=== PATIENT | male | born 1945 | race Caucasian/White ===

== ENCOUNTER → 2018-10-30 | Outpatient (CLI) | payer OTHER, MEDICARE ==
[~2018-10-30] MED LIST: ADULT LOW DOSE81 MG; ALPHAGAN P10 ML; ATENOLOL 25 MG25 M1 PO; ATENOLOL 50MG T50 M1; BREO ELLIPTA 11 EACH IH; BYSTOLIC 5 MG5 M1; FINASTERIDE5 MG; FUROSEMIDE 40 M40 M1; K-DUR 20 MEQ T20 MEQ; LEVAQUIN 500 M500 MG PO; NORCO 5-325 TA1 EACH PO; OMEPRAZOLE20 M2; PRADAXA75 MG PO; PROAIR HFA8.5 GM; QUINAGLUTE DUR324 M1; SYMBICORT160 MCG/4.; TAMSULOSIN HCL0.4 MG; XALATAN2.5 ML; XALATAN2.5 ML OPHTHALMIC
[2018-10-30 16:03] LABS: HEMATOCRIT 40.1 % (42.0-52.0); HEMOGLOBIN 13.8 gm/dL (14.0-18.0); MCH 30.4 pg (26.0-34.0); MCHC 34.4 g/dL (28.0-37.0); MCV 88.4 fL (80.0-100.0); MPV 8.3 fl. (7.2-11.1); RBC 4.54 mil/uL (4.50-6.00); RDW-CV 14.8 % (10.5-14.5); WBC 4.7 thou/uL (4.0-11.0)
== END ==
LOC: M.LAB 15:46
PROVIDERS: Internal Medicine Cardiovascular Disease
DX: I48.92 Unspecified atrial flutter (principal)

== ENCOUNTER 2018-11-23 16:53 | Inpatient (IN) | payer MEDICARE, OTHER ==
[~2018-11-23] VITALS: Ht 177.8 cm; Wt 68.7 kg
[2018-11-23] VITALS (26 sets, daily range): BP systolic 54–165; BP diastolic 36–124
--- NOTE | ~2018-11-23 | CON ---
[facility] [address] [place] [address] CONSULTATION Name: ELICIA SANDRA Room: [address] IN .R.#: [id number] Admission: 11/23/18 Attend Phys: Peter Sharma MD, F Discharge: Date of : 43 Report #: [id number] THIS REPORT FOR: //name// CC: Robi Sharma HISTORY OF PRESENT ILLNESS: This is a pleasant 73-year-old gentleman with past medical history significant for coronary artery disease, congenital heart disease and prostate cancer, who was brought in by his after he had a cardiac arrest. The patient was admitted on of this month. At presentation, the patient was in cardiac arrest. He underwent cardiac catheterization and stenting was performed. The patient since then had been on hypothermia protocol and has currently remained sedated and intubated. The GI service has been consulted for evaluation of hematemesis. The patient further had prior history of epistaxis. There is no known past medical history of peptic ulcer disease. Since the patient is currently sedated and intubated, most of the history has been obtained from chart and the patient's spouse. PAST MEDICAL HISTORY: As mentioned above. The patient has a past medical history significant for coronary artery disease, prostate cancer, hernia repair, cholecystectomy, hypertension, diabetes, hyperlipidemia. SOCIAL HISTORY: The patient is . He lives with . There is no history of smoking, alcohol or recreational drug use. FAMILY HISTORY: There is no family history of colorectal cancer, gastric or esophageal cancer. REVIEW OF SYSTEMS: Unable to obtain because of the patient's mental status. PHYSICAL EXAMINATION: VITAL SIGNS: Temperature 36.8, pulse rate 79, blood pressure 97/51, pulse ox 100% on vent, respirations 24 per minute. GENERAL: The patient is sedated, intubated, not responding to voice or pain. HEENT: Blood is noted along the nasal layers. Oral mucosa appears moist. CARDIOVASCULAR: Irregularly irregular rhythm. LUNGS: Clear to auscultation bilaterally. ABDOMEN: Soft. There is no distention, guarding or rigidity. EXTREMITIES: Bilateral pitting edema noted. LABORATORY DATA: Hemoglobin 11.8, hematocrit 34.2, platelet count 131, WBC count 9.8. Sodium 138, potassium 4.1, chloride 104, bicarbonate 27, BUN 28, creatinine 1.3. ASSESSMENT AND PLAN: Pleasant 73-year-old gentleman with a history as outlined above, who is presenting with hematemesis. [place] [address] CONSULTATION Name: ELICIA SANDRA Room: [address]#: [id number] Admission: 11/23/18 Attend Phys: Peter Sharma MD, F Discharge: Date of : 43 Report #: [id number] esophagogastroduodenoscopy and make further recommendations based on the results of esophagogastroduodenoscopy. By: 1736 MD eloisa Hong
[2018-11-23 17:17] LABS: BE -6.2 mmol/L (-2 to +3); PCO2 32.7 mmHg (35.0-45.0)
[2018-11-23 17:22] LABS: PO2 > 488.8 mmHg (75.0-100.0)
--- NOTE | 2018-11-23 17:33 | NUR ---
ROSC OBTAINED. EKG DONE. STEMI ACTIVATED. SEE STEMI PAPERWORK.
--- NOTE | 2018-11-23 17:35 | NUR ---
PT TO THE [facility] AT 3810.
[2018-11-23] MEDS ORDERED: DULERA 200 MCG/13 GM INH (17:53)
[2018-11-23] MEDS ORDERED: XARELTO15 MG PO (17:54)
[2018-11-23] MEDS ORDERED: SOTALOL 120 MG120 M1 PO (17:54)
[2018-11-23] MEDS ORDERED: PRESERVISION A1 EAC2 PO (17:54)
[2018-11-23 20:10] LABS: ABSOLUTE LYMPHOCYTES 2.9 thou/uL (0.8-5.3); ABSOLUTE MONOCYTES 0.4 thou/uL (0.0-1.2); BASOPHILS 0.3 %; CALCIUM 8.9 mg/dL (8.5-10.1); CREATININE 1.2 mg/dL (0.6-1.3); EOSINOPHILS 0.1 %; HEMATOCRIT 44.4 % (42.0-52.0); LYMPHOCYTES 54.5 %; MCH 30.7 pg (26.0-34.0); MCHC 33.8 g/dL (28.0-37.0); MCV 90.7 fL (80.0-100.0); MONOCYTES 7.4 %; MPV 9.4 fl. (7.2-11.1); NUCLEATED RBCS 1 /100WBC; PLATELET COUNT* 179 thou/uL (150-400); POLYS 37.7 %; POTASSIUM 3.8 mmol/L (3.5-5.1); RBC 4.89 mil/uL (4.50-6.00); WBC 5.4 thou/uL (4.0-11.0)
[2018-11-23 20:20] LABS: ALBUMIN 3.3 g/dL (3.4-5.0); TOTAL BILIRUBIN 0.6 mg/dL (<0.1-1.0); TOTAL PROTEIN 6.5 g/dL (6.4-8.2); TROPONIN-I LEVEL 0.23 ng/mL (<0.06)
[2018-11-23 20:37] LABS: APTT 40.3 Seconds (25.0-31.3); INR 1.1; PROTIME 11.4 Seconds (9.20-11.50)
[2018-11-23 20:54] LABS: CALCIUM 8.2 mg/dL (8.5-10.1); CREATININE 1.1 mg/dL (0.6-1.3); POTASSIUM 4.1 mmol/L (3.5-5.1)
[2018-11-23 21:04] LABS: BE -2.2 mmol/L (-2 to +3); PCO2 37.2 mmHg (35.0-45.0); pH 7.393 (7.340-7.450)
[2018-11-23 21:04] LABS: ALBUMIN 3.1 g/dL (3.4-5.0); TOTAL BILIRUBIN 0.8 mg/dL (<0.1-1.0)
[2018-11-23 21:10] LABS: PO2 230.4 mmHg (75.0-100.0)
[2018-11-24] VITALS (117 sets, daily range): BP systolic 31–131; BP diastolic -26–100
[2018-11-24 03:04] LABS: APTT 44.7 Seconds (25.0-31.3); INR 1.1; PROTIME 11.4 Seconds (9.20-11.50)
[2018-11-24 03:23] LABS: ABSOLUTE MONOCYTES 1.1 thou/uL (0.0-1.2); ABSOLUTE NEUTROPHILS 11.1 thou/uL (1.6-8.1); BASOPHILS 0.1 %; HEMATOCRIT 41.6 % (42.0-52.0); HEMOGLOBIN 13.8 gm/dL (14.0-18.0); LYMPHOCYTES 7.6 %; MCHC 33.3 g/dL (28.0-37.0); MONOCYTES 8.1 %; MPV 9.1 fl. (7.2-11.1); NUCLEATED RBCS 0 /100WBC; PLATELET COUNT* 197 thou/uL (150-400); POLYS 84.2 %; RBC 4.62 mil/uL (4.50-6.00); RDW-CV 14.2 % (10.5-14.5); WBC 13.2 thou/uL (4.0-11.0)
--- NOTE | 2018-11-24 03:30 | NUR ---
PT RECEIVED FROM [facility]EN PRESS TENDER S/P CATH FOR STEMI AND POST CARDIAC ARREST. PT ON HOSPITAL BED. ADMITTED TO 1CU 2 AT 1920. ETT 7.5 AND 25 @ LIP INTACT AND CONNECTED TO VENT. SEE CHARTING FOR SETTINGS. MONITORS APPLIED WITH ALARMS SET. PT IS NOTED TO BE HAVING DECEREBRATE POSTURING OF LEGS, FEET, ARMS AND HANDS. PT DOES NOT FOLLOW COMMANDS. PERRL AT THIS TIME. TEMP PROBE ANDERSON INSERTED ORDERED WITHOUT DIFFICULTY WITH CLEAR YELLWO URINE RETURN AND CONNECTED TO BEDSIDE BAG, UA SENT ORDERED. 2029 COOLING BEGAN AFTER PLACEMENT OF PADS. 2034 LABS SENT ORDERED. NGT PLACED ORDERED AND PLACEMENT VERIFIED PER XRAY. CONNECTED TO LIS WITH DARK RED DC 2339 DR BELL NOTIFIED OF BRIGHT RED DC FROM ETT TUBEAND DARK RED DC FROM NGT. NEW ORDERS RECEIVED. AGGRESTAT OFF AT [address] tim GONZALEZ HERE FOR CENTRAL LINE PLACEMENT. PLACEMENT VERIFIED BY XRAY AND CLEARED FOR USE. ALL LINES HAD DRESSING CHANGES AFTER AGGRESTAT WAS DCD DUE TO BLEEDING. NO ACTIVE BLEEDING NOTED AT THIS TIME AFTER ACHIEVIGN SEDATION LEVEL, PTS BP DECREASED AND PRESSORS STARTED ORDERED. 2149 DR BELL NOTIFIED OF 13 BEAT RUN OF V TACH. NO NEWORDERS RECEIVED AT THIS TIME. VSS HAVE IMPROVED EVENING PROGRESSED.
[2018-11-24 03:38] LABS: CALCIUM 8.6 mg/dL (8.5-10.1); CREATININE 0.9 mg/dL (0.6-1.3); MAGNESIUM 1.7 mg/dL (1.8-2.4); PHOSPHORUS* 4.1 mg/dL (2.5-4.9)
[2018-11-24 03:44] LABS: CHOLESTEROL 235 mg/dL (<200); HDL CHOLESTEROL 60 mg/dL (>40); LDL CHOLESTEROL 149 mg/dL (<100); TC:HDL 3.9 Ratio (Not establshd); TRIGLYCERIDE 130 mg/dL (<150); VLDL 26 mg/dL (<40)
[2018-11-24 03:45] LABS: SERUM ASSESSMENT Clear
[2018-11-24 07:50] LABS: BE -5.1 mmol/L (-2 to +3); PO2 101.7 mmHg (75.0-100.0)
[2018-11-24 07:54] LABS: pH 7.242 (7.340-7.450)
[2018-11-24 08:20] LABS: PCO2 54.5 mmHg (35.0-45.0)
[2018-11-24 08:50] LABS: ABSOLUTE MONOCYTES 1.9 thou/uL (0.0-1.2); BASOPHILS 0.1 %; EOSINOPHILS 0.2 %; HEMATOCRIT 40.3 % (42.0-52.0); HEMOGLOBIN 13.3 gm/dL (14.0-18.0); LYMPHOCYTES 6.9 %; MCH 29.6 pg (26.0-34.0); MCV 89.6 fL (80.0-100.0); MONOCYTES 12.4 %; MPV 8.7 fl. (7.2-11.1); NUCLEATED RBCS 0 /100WBC; PLATELET COUNT* 195 thou/uL (150-400); POLYS 80.4 %; RDW-CV 13.8 % (10.5-14.5)
[2018-11-24 09:07] LABS: APTT 41.9 Seconds (25.0-31.3); PROTIME 10.7 Seconds (9.20-11.50)
--- NOTE | 2018-11-24 09:18 | NUR ---
REWARMING PROCESS BEGAN AT [address] BELL.
[2018-11-24 09:35] LABS: CALCIUM 8.4 mg/dL (8.5-10.1); CK-MB MASS 486.6 ng/mL (<0.5-3.6); CREATININE 1.2 mg/dL (0.6-1.3); MAGNESIUM 3.1 mg/dL (1.8-2.4); PHOSPHORUS* 4.8 mg/dL (2.5-4.9); POTASSIUM 4.3 mmol/L (3.5-5.1)
[2018-11-24 09:44] LABS: BE -4.1 mmol/L (-2 to +3); PO2 87.7 mmHg (75.0-100.0)
[2018-11-24 09:46] LABS: pH 7.276 (7.340-7.450)
--- NOTE | 2018-11-24 11:36 | CARD ---
[facility] [address] [place] [address] CARDIAC CATH REPORT Name: ELICIA SANDRA Thania Room: [facility] IN .R.#: [id number] Admission: 11/23/18 Attend Phys: Peter Sharma MD, F Discharge: Date of : 43 Report #: [id number] THIS REPORT FOR: //name// APPROVED REPORT Study performed: 11/23/2018 17:08:48 Patient Details Patient Status: ED Room #: The patient is a 73 year-old male Event Personnel Camryn Loving RN RN, Gladis Snow, Gaudencio Bustos (Helen) Edith Hicks David Clasp Machine Operator Procedures Performed Art Access - R femoral artery* Danilo Access - R femoral vein Left Heart Cath w/or w/o Coronaries 3706825 C BMS Revasc Single DIAG [id number] BMREVSVGSG BMS Revasc Single OM [id number] BMREVSVGSG PTCA Single Vessel LAD [id number] PCISINGLE , PTCA with Stenting Indication Abnormal ECG, Syncope, Chest pain Risk Factors Hypercholesterolemia Previous Procedures/Diagnoses Previous Valve Surgery Admission/Lab Medications/Medications given during procedure Glycoprotein IllbIlla Inhibitors, Heparin Unfract. Procedure Narrative The patient was brought emergently to the Cardiac Catheterization Laboratory and was prepped and draped in a sterile manner. The right femoral was infiltrated with 2% Lidocaine subcutaneous anesthesia. A Rowe 6 FR sheath was inserted into the right femoral artery. Coronary angiography was performed using coronary diagnostic catheters. The right coronary system was accessed and visualized with a Diagnostic catheter. The left coronary system was accessed and visualized with a Diagnostic catheter. The left ventricle was accessed and visualized [place] [address] CARDIAC CATH REPORT Name: ELICIA SANDRA Room: [address]#: [id number] Admission: 11/23/18 Attend Phys: Peter Sharma MD, F Discharge: Date of : 43 Report #: [id number] ventricular/Aortic Valve gradient assessed via catheter pullback. Left ventriculogram was performed in LANDAVERDE projection. The patient tolerated the procedure well and there were no complications associated with the procedure. There was no hematoma. Lines were sutured in. Venous sheath was placed in the right femoral vein for central venous access. The patient had been intubated and was unresponsive and on a ventilator at the time of the procedure. The patient had been cardioverted from ventricular fibrillation in the ED, and the ECG showed an anterior STEMI. Intraoperative Conscious Sedation Sedation start time: 1747 Case end Time: 1840 Versed 8 mg Fluoro Time: 12.3 minutes Contrast Type and Amount: Visipaque 380 ml Coronary Angiography The patient's coronary anatomy is co- dominant. Diagnostic Cath Left Main 0% stenosis LAD appeared occluded after the second diagonal branch and filled distally by bridging collaterals Diagonal 2 ostial 99% stenosis OM2 appearred acutely occluded Right Coronary 30% stenosis noted proximally Left Ventriculography The left ventricular ejection fraction is estimated to be 20-25%. Left ventricular wall motion abnormalities are present. There is 1+ mitral insufficiency. akinesis of the mid and distal anteroapical wall. Hemodynamics The aortic pressure is 139/85 mmHg with a mean of 96 mmHg. The left ventricular pressure is 120/22 mmHg with a mean of mmHg. The left ventricular end diastolic pressure is 38 mmHg. There was no gradient across the aortic valve upon pullback. Pullback from the left ventricle to the aorta revealed no gradient across the aortic valve. PCI Technique Lesion Anticoagulation was achieved with Heparin. iv bolus and infusion of aggrastat given Percutaneous coronary [place] [address] CARDIAC CATH REPORT Name: ELICIA SANDRA Room: [address]#: [id number] Admission: 11/23/18 Attend Phys: Peter Sharma MD, F Discharge: Date of : 43 Report #: [id number] the LAD . The lesion stenosis prior to intervention was 100% with YAHAIRA 0 flow. A 6F XB LAD 3.5 Guide Catheter was used to engage the lm ostium. A IG: BMW 190cm Interventional Guidewire was used to cross the lesion. BALLOON DILATION Unable to advance bmw wire into lad because of acute takeoff of lad from first septal manufacturing lab technician. Also, there was a concern that the occlusion represented a chronic occlusion. Attempted PTCA by inflating 2.5 x 8 mm balloon in the septal manufacturing lab technician to guide a prowater flex wire into the lad, but these efforts were also unsuccessful. It was therefore decided to stent the ostium of the large second diagonal branch which was noted to have a 99% stenosis. Final angiography reveals 100 % stenosis with YAHAIRA 0 flow. STENT DEPLOYMENT A bare metal stent Mini Vision RX 2.5 X 8 was inserted and inflated up to 8atm for 11seconds. Additional Inflation: 10atm for 11seconds. PCI Technique Lesion 2 Percutaneous Coronary Intervention was performed on the second diagonal branch segment. Percutaneous coronary intervention was performed on the second diagonal branch segment. The lesion stenosis prior to intervention was 99% with YAHAIRA 3 flow. A 6F XB LAD 3.5 Guide Catheter was used to engage the lm ostium. A IG: BMW 190cm Interventional Guidewire was used to cross the lesion. Balloon Dilation A Balloon catheter 2.5 x 8 mm was inserted and inflated up to 8atm for 10seconds. Repeat angiography revealed the following post-dilatation results: 50% stenosis. Stent Deployment A bare metal stent Trek RX 2.5 X 8 was inserted and inflated up to 8atm for 11seconds. Repeat angiography revealed the following post-stent deployment results: 0% stenosis. Additional Inflation: 11atm for 10seconds. Final angiography reveals 0 % stenosis with YAHAIRA 3 flow. PCI Technique Lesion 3 Percutaneous Coronary Intervention was performed on the second obtuse marginal branch segment. Percutaneous coronary intervention was [address] [place] [address] CARDIAC CATH REPORT Name: ELICIA SANDRA Room: [address] IN ..#: [id number] Admission: 11/23/18 Attend Phys: Peter Sharma MD, F Discharge: Date of : 43 Report #: [id number] performed on the second obtuse marginal branch segment. The lesion stenosis prior to intervention was 100% with YAHAIRA 0 flow. A xblad3.5 Guide Catheter was used to engage the lm ostium. A bmw Interventional Guidewire was used to cross the lesion. Balloon Dilation A Balloon catheter Trek RX 2.5 X 12 was inserted and inflated up to 8atm for 10seconds. Repeat angiography revealed the following post-dilatation results: 50% stenosis. Initial arteriogram revealed the 2nd OM occluded. However, after IV heparin and aggrastat given during stenting of the diagonal artery, the OM was noted to have reperfused with a 90% stenosis Stent Deployment A bare metal stent Mini Vision RX 2.5 X 18 was inserted and inflated up to 8atm for 9seconds. Repeat angiography revealed the following post-stent deployment results: 0% stenosis. Final angiography reveals 0 % stenosis with YAHAIRA 3 flow. Conclusion 1. chronic occlusion of the mid lad that filled by collaterals 2. acute occlusion of the second marginal branch of the circumflex 3. high grade stenosis of the ostium of the second diagonal branch 4. successful placement of drug eluting stents in the diagonal branch and second marginal branch 5. unsuccessful PTCA attempt of the lad 6. LVEF 20-25% Recommendations Aggressive Medical Therapy <ELECTRONICALLY SIGNED> By: Peter Sharma MD, [facility] 11/24/18 1136 1136 1136Peter Sharma MD, FAC /INF
[2018-11-24 11:44] LABS: BE -4.7 mmol/L (-2 to +3); PCO2 37.7 mmHg (35.0-45.0); pH 7.349 (7.340-7.450)
--- NOTE | 2018-11-24 15:00 | NUR ---
PT ADMITTED 11/23, REMAINS ON VENT AND CODE ICE. SPOKE WITH IN WAITING ROOM. SHE HAS NO QUESTIONS ABOUT PLAN OF CARE, STATES THE DOCTORS AND NURSES ARE DOING A GOOD JOB OF KEEPING HER UPDATED. BRIEFLY EXPLAINED ROLE OF CASE MGT, WILL CONTINUE TO FOLLOW.
--- NOTE | 2018-11-24 15:33 | EKG ---
[place] [address] ELECTROCARDIOGRAM REPORT Name: ELICIA SANDRA Room: [facility] IN .R.#: [id number] Admission: 11/23/18 Attend Phys: Peter Sharma MD, F Discharge: Date of : 43 Report #: [id number] THIS REPORT FOR: //name// [facility] ED Test Date: 2018-11-23 Test Time: 16:59:35 Pat Name: ELICIA SANDRA Department: Room: Gender: Signal Technician: [facility] : 1945 Requested By: Order Number: [id number] Eamon MD: Gordy Mock Measurements Intervals [place] Rate: 90 P: 50 RI: 184 QRS: -105 QRSD: 158 T: 36 QT: 360 QTc: 441 Interpretive Statements Sinus rhythm Probable left atrial enlargement Right bundle branch block Left anterior fascicular block Anterolateral infarct, acute (LAD) Baseline wander in lead(s) V1,V4,V5 Compared to ECG 12/29/2014 19:52:11 Myocardial infarct finding now present Sinus bradycardia no longer present Electronically Signed On 11-24-2018 15:33:04 CDT by Gordy Mock [email or web address] <ELECTRONICALLY SIGNED> By: Gordy Mock MD, FACC 11/24/18 1533 1659 1659 Gordy Mock MD, FACC /EPI
--- NOTE | 2018-11-24 15:35 | EKG ---
[place] [address] ELECTROCARDIOGRAM REPORT Name: JOCYELICIA Thania Room: [address] ADM IN M.R.#: [id number] Admission: 11/23/18 Attend Phys: Peter Sharma MD, F Discharge: Date of : 43 Report #: [id number] THIS REPORT FOR: //name// [facility] Test Date: 2018-11-23 Test Time: 20:11:29 Pat Name: ELICIA SANDRA Department: Room: [address] Gender: M Life Sciences Director: Brittney BYRD RN : 1945 Requested By: Peter Sharma Order Number: [id number] Eamon MD: Gordy Mock Measurements Intervals [place] Rate: 118 P: 186 DC: 125 QRS: 231 QRSD: 145 T: 57 QT: 378 QTc: 530 Interpretive Statements Sinus or ectopic atrial tachycardia Consider dextrocardia Baseline wander in lead(s) V4 Compared to ECG 12/29/2014 19:52:11 Sinus bradycardia no longer present Right bundle-branch block no longer present Left anterior fascicular block no longer present Bifascicular block no longer present Electronically Signed On 11-24-2018 15:35:33 CDT by Gordy Mock [email or web address] <ELECTRONICALLY SIGNED> By: Gordy Mock MD, FACC 11/24/18 1535 10 10 Gordy Mock MD, FAC /EPI
--- NOTE | 2018-11-24 15:37 | EKG ---
[place] [address] ELECTROCARDIOGRAM REPORT Name: JOCYELICIA Thania Room: [address] ADM IN M.R.#: [id number] Admission: 11/23/18 Attend Phys: Peter Sharma MD, F Discharge: Date of : 43 Report #: [id number] THIS REPORT FOR: //name// [facility] Test Date: 2018-11-24 Test Time: 07:51:30 Pat Name: ELICIA SANDRA Department: Room: [address] Gender: M Coin Machine Collector Supervisor: : 1945 Requested By: Peter Sharma Order Number: [id number] Eamon MD: Gordy Mock Measurements Intervals [place] Rate: 78 P: -39 [place]: 142 QRS: -114 QRSD: 167 T: 89 QT: 512 QTc: 584 Interpretive Statements Sinus rhythm Multiple premature complexes, vent & supraven Right bundle branch block Compared to ECG 12/29/2014 19:52:11 Sinus bradycardia no longer present Left anterior fascicular block no longer present Bifascicular block no longer present Electronically Signed On 11-24-2018 15:37:25 CDT by Gordy Mock [email or web address] <ELECTRONICALLY SIGNED> By: Gordy Mock MD, FAC 11/24/18 1537 0751 0751 Gordy Mock MD, [facility] /EPI
--- NOTE | 2018-11-24 17:32 | NUR ---
PT CARE ASSUMED AFTER REPORT. ASSESSMENTS COMPLETE. PT WITH V FIB, SR, SB, PVC, PAC, CUPLETS ON MONITOR THIS SHIFT. PT REMAINS ON VENT AND IS SEDATED. NG TO LIS WITH BLOODY DRAINAGE. BLOOD DRAINS FROM MOUTH AT TIMES AND SUCTIONED PRN. PT REWARMING PER PROTOCOL AT THIS TIME. REWARMING BEGAN AT 0802. TITRATING LEVOPHED DOWN TOLERATED. ANDERSON TO DD. FAMILY AT BEDSIDE OFF AND ON THROUGH THE DAY. WOULS LIKE TO BE PRESENT WHEN SEDATION IS TITRATED DOWN IN CASE PT AWAKENS. ART LINE AND CVP FUNCTIONING WELL. NO S/S OF PAIN. PT BEGINNING TO PROGRESS TOWARDS GOALS.
[2018-11-24 20:29] LABS: ABSOLUTE LYMPHOCYTES 0.6 thou/uL (0.8-5.3); ABSOLUTE MONOCYTES 0.7 thou/uL (0.0-1.2); ABSOLUTE NEUTROPHILS 7.1 thou/uL (1.6-8.1); BASOPHILS 0.5 %; HEMATOCRIT 37.3 % (42.0-52.0); HEMOGLOBIN 12.7 gm/dL (14.0-18.0); LYMPHOCYTES 7.2 %; MCH 30.5 pg (26.0-34.0); MCHC 34.2 g/dL (28.0-37.0); MCV 89.1 fL (80.0-100.0); MONOCYTES 8.7 %; MPV 8.7 fl. (7.2-11.1); NUCLEATED RBCS 0 /100WBC; PLATELET COUNT* 130 thou/uL (150-400); POLYS 83.6 %; RBC 4.18 mil/uL (4.50-6.00); RDW-CV 14.5 % (10.5-14.5); WBC 8.5 thou/uL (4.0-11.0)
[2018-11-24 20:44] LABS: APTT 43.3 Seconds (25.0-31.3); PROTIME 10.5 Seconds (9.20-11.50)
[2018-11-24 20:48] LABS: CALCIUM 8.7 mg/dL (8.5-10.1); CREATININE 1.1 mg/dL (0.6-1.3); MAGNESIUM 2.7 mg/dL (1.8-2.4); PHOSPHORUS* 4.8 mg/dL (2.5-4.9); POTASSIUM 4.2 mmol/L (3.5-5.1)
[2018-11-25] VITALS (108 sets, daily range): BP systolic 75–142; BP diastolic 46–136
[2018-11-25 03:46] LABS: HEMATOCRIT 34.2 % (42.0-52.0); HEMOGLOBIN 11.8 gm/dL (14.0-18.0); MCH 30.6 pg (26.0-34.0); MCHC 34.5 g/dL (28.0-37.0); MCV 88.8 fL (80.0-100.0); MPV 9.3 fl. (7.2-11.1); RBC 3.86 mil/uL (4.50-6.00); RDW-CV 14.3 % (10.5-14.5); WBC 9.8 thou/uL (4.0-11.0)
[2018-11-25 04:20] LABS: ALBUMIN 2.5 g/dL (3.4-5.0); CALCIUM 8.5 mg/dL (8.5-10.1); CREATININE 1.3 mg/dL (0.6-1.3); POTASSIUM 4.1 mmol/L (3.5-5.1); TOTAL BILIRUBIN 1.4 mg/dL (<0.1-1.0); TOTAL PROTEIN 5.4 g/dL (6.4-8.2)
[2018-11-25 04:56] LABS: TROPONIN-I LEVEL 50.18 ng/mL (<0.06)
[2018-11-25 05:02] LABS: BE -2.4 mmol/L (-2 to +3); PCO2 39.4 mmHg (35.0-45.0); pH 7.375 (7.340-7.450)
--- NOTE | 2018-11-25 06:26 | NUR ---
REPORT RECIEVED FROM OFF GOIGN SHIFT AND CARE ASSUMMED. MONTIORS INTACT AND ALARMS SET. ETT 7.5 26 @LIP INTACT AND CONNECTED TO VENTILATOR. SEE CHARTING FOR SETTINGS. PT IS CURRENTLY BEING REWARMED. ANDERSON INTACT AND PATENT DRAINING SIMON URINE TO BEDSIDE BAG. JUST PRIOR TO ASSUMMING CARE PTS TEMP DECREASED TO 96.7 AND CONTINUE OT FALL. SEE CHARTING FOR DETAILS. CURRNTLY TEMP IS 98.4. NO ACUTE CHANGES DURING SHIFT WILL CONTINUE TO MONITOR
--- NOTE | 2018-11-25 10:57 | EKG ---
[place] [address] ELECTROCARDIOGRAM REPORT Name: ELICIA SANDRA Room: [address] ADM IN M.R.#: [id number] Admission: 11/23/18 Attend Phys: Peter Sharma MD, F Discharge: Date of : 43 Report #: [id number] THIS REPORT FOR: //name// [facility] Test Date: 2018-11-25 Test Time: 09:02:04 Pat Name: ELICIA ASNDRA Department: Room: [address] Gender: M Show Design Supervisor: : 1945 Requested By: Peter Sharma Order Number: [id number] Eamon MD: Peter Sharma Measurements Intervals [place] Rate: 77 P: 40 [place]: 147 QRS: -123 QRSD: 151 T: 104 QT: 423 QTc: 479 Interpretive Statements Sinus rhythm Right bundle branch block Inferior infarct, old Anterolateral infarct, age indeterminate Compared to ECG 11/24/2018 07:51:30 Myocardial infarct finding now present Electronically Signed On 11-25-2018 10:56:55 CDT by Peter Sharma [email or web address] <ELECTRONICALLY SIGNED> By: Peter Sharma MD, [facility] 11/25/18 1056 0902 0902 Peter Sharma MD, [facility] /EPI
--- NOTE | 2018-11-25 16:40 | H ---
[place] [address] HISTORY AND PHYSICAL Name: ELICIA SANDRA Room: [address] IN .R.#: [id number] Admission: 11/23/18 Attend Phys: Peter Sharma MD, F Discharge: Date of : 43 Report #: [id number] THIS REPORT FOR: //name// CC: Robi Topete MD DATE OF SERVICE: 11/23/2018 HISTORY OF PRESENT ILLNESS: The patient is a 73-year-old white male who I was asked to see in the Emergency Room today after he suffered a cardiac arrest. The history is obtained from the . The patient is currently intubated. According to the , he had pulmonary valvuloplasty when he was 5 years old for congenital heart disease. 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 At that time, they also repaired a hole in his heart. He has been followed by Dr. Rivera. He also had a history of atrial fibrillation and had an ablation performed in the past as well. He has acutely done well since that time, last saw Dr. Rivera several months ago. He stays active. He was diagnosed with prostate cancer about 3 months ago. Today, he went for radiation therapy. When he got home, he felt some pressure in his chest and had some belching. The placed him in the car and they started to drive here to [facility]. In the car, the patient became unresponsive and slumped over. The brought him to the Emergency Room. The Emergency Room physician went out to the car and the patient was unresponsive. He was intubated. On the monitor, he was noted to be in ventricular fibrillation. He was cardioverted. I was asked to see him on an emergent basis. The denies previous history of coronary artery disease, chest pain, shortness of breath, palpitations, syncope, or bleeding. PAST MEDICAL HISTORY: Significant for hernia repair, cholecystectomy. No history of hypertension, diabetes, hyperlipidemia. MEDICATIONS: Include Sotalol, and Xarelto. ALLERGIES: HE HAS AN ALLERGY TO BIAXIN. FAMILY HISTORY: Negative for heart disease. SOCIAL HISTORY: He is . He and his live in [place]. He is a retired medical coding auditor. No smoking or alcohol abuse. REVIEW OF SYSTEMS: He has no history of stroke. He has had COPD, uses inhaler. No history of peptic ulcer disease, liver disease, kidney disease, psychiatric illness [place] [address] HISTORY AND PHYSICAL Name: ELICIA SANDRA Room: [address] IN [facility].#: [id number] Admission: 11/23/18 Attend Phys: Peter Sharma MD, F Discharge: Date of : 43 Report #: [id number] PHYSICAL EXAMINATION: GENERAL: Revealed an elderly male who is currently intubated. VITAL SIGNS: Blood pressure 120/70, pulse is 90. HEENT: He is anicteric. Conjunctivae pink. Mucous membranes were moist. NECK: Veins do not appear distended. No carotid bruits. Neck supple. CHEST: Clear to auscultation. CARDIOVASCULAR: Regular rate and rhythm, no murmur. ABDOMEN: Soft. EXTREMITIES: No edema. Dorsalis pedis pulse 2+ bilaterally. SKIN: Warm, dry. NEUROLOGIC: Nonfocal. LABORATORY DATA: ECG shows a sinus rhythm with a right bundle-branch block. There appears to be ST segment elevation in V3, V4 and V5. IMPRESSION AND RECOMMENDATION: 1. Acute anterior ST elevation myocardial infarction. Recommend urgent cardiac catheterization. 2. 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 3. Previous septal defect with patch repair. 4. History of atrial fibrillation. Previous ablation. The patient has been on sotalol and anticoagulation with Xarelto. 5. History of asthma. 6. History of prostate cancer. This history and physical was done from 05:15 p.m. until 06:00 p.m. <ELECTRONICALLY SIGNED> By: Peter Sharma MD, FACC 11/25/18 1640 1727 [id number] Sharma MD, FACC /nt
--- NOTE | 2018-11-25 18:14 | NUR ---
PT CARE ASSUMED AFTER REPORT. ASSESSMENT COMPLETE. SR/BBB ON MONITOR. LEVOPHED TITRATED TO KEEP MAP BETWEEN 60/65. PT VENTILATED AND SEDATED. FENTANYL TITRATED DOWN FOR SEDATION. VERSED ALSO INFUSING. MONICA TO DD. EGD THIS PM. DR REPORTS SMALL ULCER TO STOMACHE WITCH HE COTERIZED AND BLEEDING FROM THE NOSE. NG TUBE REPLACED BY GI DR. LESS BLOODY DRAINAGE FROM NG TUBE. FAMILY MADE AWARE OF FINDINGS PER . PT HAD EEG THIS AM. NO RESULTS BACK AT THIS TIME. PT SLOWLY PROGRSSING TOWARDS GOALS.
[2018-11-26] VITALS (85 sets, daily range): BP systolic 73–199; BP diastolic 52–157
[2018-11-26 02:58] LABS: ABSOLUTE LYMPHOCYTES 0.7 thou/uL (0.8-5.3); ABSOLUTE NEUTROPHILS 8.9 thou/uL (1.6-8.1); BASOPHILS 0.1 %; HEMATOCRIT 30.7 % (42.0-52.0); HEMOGLOBIN 10.6 gm/dL (14.0-18.0); LYMPHOCYTES 6.1 %; MCH 30.8 pg (26.0-34.0); MCHC 34.4 g/dL (28.0-37.0); MCV 89.5 fL (80.0-100.0); MONOCYTES 9.8 %; MPV 9.3 fl. (7.2-11.1); NUCLEATED RBCS 0 /100WBC; PLATELET COUNT* 139 thou/uL (150-400); RBC 3.42 mil/uL (4.50-6.00); RDW-CV 14.5 % (10.5-14.5); WBC 10.6 thou/uL (4.0-11.0)
[2018-11-26 03:09] LABS: ALBUMIN 2.4 g/dL (3.4-5.0); CALCIUM 8.2 mg/dL (8.5-10.1); CREATININE 1.3 mg/dL (0.6-1.3); MAGNESIUM 2.4 mg/dL (1.8-2.4); PHOSPHORUS* 3.5 mg/dL (2.5-4.9); TOTAL BILIRUBIN 1.2 mg/dL (<0.1-1.0); TOTAL PROTEIN 5.4 g/dL (6.4-8.2)
--- NOTE | 2018-11-26 06:33 | NUR ---
ASSESSMENT CHARTED. PATIENT HEART RATE HAS BEEN TACHYCARDIC FOR THE MAJORITY OF THE SHIFT. PATIENT ENTERED IN TO A SUSTAINED TACHYCARDIA AT 2009 AN WAS ABLE TO CONVERT OUT OF THE RHYTHM TWICE ON HIS OWN. AT 010, PATIENT ENTERED TACHYCARDIC RHYTHM GREATER THAN 140 AND WAS UNABLE TO CONVERT OUT ON HIS OWN. CARDIOLOGY WAS CONSULTED AND ORDERS WERE RECIEVED TO START AMIODARONE GTT PER PROTOCOL. PATIENT STILL TACHYCARDIC IN 120-130 RANGE. AMIODARONE GTT STILL INFUSING. NURSING JUDGEMENT WAS USED TO DECIDE NOT TO TURN PATIENT DURING SHIFT MAJOR STIMULATION CAUSED THE PATIENT'S HEART RATE TO JUMP INTO TACHYCARDIC RANGE. BARRIER CREAM WAS APPLIED TO THE PATIENT'S BACK AND BOTTOM AND THERE IS NO EVIDENCE OF PRESSURE WOUNDS DEVELOPING. PATIENT CONTINUES TO HAVE NOSEBLEED AND BLOOD DRAINS DOWN THE BACK OF HIS THROAT. DURING SHIFT, PATIENT WAS SUCTIONED NUMEROUS TIMES AND LARGE CLOTS WERE SUCTIONED OUT OF THE BACK OF HIS THROAT. PATIENT'S HGB CONTINUES TO REMAIN STABLE DESPTIE CONSTANT BLEED. DRAINAGE FROM NG SUCTION WAS BLOODY FOR WHOLE SHIFT. PATIENT'S FAMILY AT BEDSIDE DURING BEGINING OF SHIFT. FAMILY AWAITING REPORTS OF EEG DONE ON 11/25/18.
--- NOTE | 2018-11-26 08:13 | CON ---
[facility] [address] [place] [address] CONSULTATION Name: ELICIA SANDRA Room: [address] IN M.R.#: [id number] Admission: 11/23/18 Attend Phys: Peter Sharma MD, F Discharge: Date of : 41 Report #: [id number] THIS REPORT FOR: //name// CC: Robi Sharma DATE OF SERVICE: 11/24/2018 REQUESTING PHYSICIAN: Dr. Peter Sharma. REASON FOR CONSULTATION: Status post cardiopulmonary arrest, on ventilator and now with respiratory failure. DISCUSSION: The patient is a nonsmoking 73-year-old man who presented to the Emergency Department yesterday evening in his 's vehicle. Apparently, he had not been feeling well. His was in the process of transporting him to the ED to have him evaluated. He became unresponsive in the car. He was seen in the ED and CPR was started and was intubated. Dr. Sharma did see him in the Emergency Department. He was taken to the cardiac catheterization lab. Formal report is pending. He did have a couple of stents placed. He returned to the Intensive Care Unit in critical condition. He has had a difficult night. Initially, he was started on the cooling protocol. After Dr. Sharma saw him this morning, rewarming has started. Post-procedure, he did have ongoing issues with arrhythmias, primarily V-tach. He was also having issues with bleeding from his endotracheal tube as well as having large amount of dark fluid coming from his oral gastric tube. Aggrastat was stopped. Amiodarone has been ongoing throughout the night. Due to his V-tach issues, he was cardioverted several times during the night and also had CPR intermittently. He was last shocked at around 7 o'clock this morning. He is currently sedated on the ventilator. He is requiring some Levophed for his pressure. He is also on amiodarone. PAST MEDICAL HISTORY: Obtained primarily from the records here. He is a nonsmoker. He does have a history of heart disease. He had a pulmonary valvuloplasty as a child for congenital heart disease. In 2008, he had pulmonary valve replacement. He also had repair of "hole in heart." Known history of atrial fibrillation, has had ablation procedures done in the past. He had polio when he was young, details not clear. He does have a history of asthma as well. He has had a prior herniorrhaphy, hypertension, cholecystectomy, diabetes mellitus, and dyslipidemia. Recently, he was diagnosed with prostate cancer and has been receiving radiation therapy. HOME MEDICATIONS: Have been sotalol, Xarelto, various eyedrops for glaucoma, ProAir inhaler p.r.n., Lasix, Proscar, Flomax, omeprazole, Pradaxa, [place] [address] CONSULTATION Name: ELICIA SANDRA Room: [address]#: [id number] Admission: 11/23/18 Attend Phys: Peter Sharma MD, F Discharge: Date of : 41 Report #: [id number] another inhaler. Old records indicate at various times he has been on either Symbicort, Breo or Dulera. ALLERGIES: He has allergies to SULFA as well as CLARITHROMYCIN. SOCIAL HISTORY: Nonsmoker. He is . FAMILY HISTORY: Unable to obtain from the patient. REVIEW OF SYSTEMS: Unable to obtain from the patient. PHYSICAL EXAMINATION: GENERAL APPEARANCE: He looks his stated age. Currently sedated on the ventilator. He is intubated orally. Also, has an oral gastric tube in place. Not responding to me. He is on Levophed. HEENT: Head is normocephalic. Sclerae nonicteric. Mucous membranes are moist. He does have some bright red blood noted in his endotracheal tube. Has oral gastric tube in place, darker brownish to reddish liquid noted. NECK: Without any definite adenopathy. He does have a right IJ catheter in place. He has well-healed median sternotomy scar. HEART: Tones are distant and irregularly irregular. I do not appreciate an S3. LUNGS: Sounds are somewhat coarse. Mildly diminished. Peak airway pressure is around 40. No definite wheezing is heard. No subcutaneous emphysema. ABDOMEN: Soft. No hepatosplenomegaly. Lines are still in place in the right groin area. He has a Delgado catheter in place. EXTREMITIES: Without any definite edema. No clubbing is noted. Pulses are present though diminished. LABORATORY AND X-RAY FINDINGS: Last chest x-ray was done late yesterday evening with this morning's film pending. Endotracheal tube in position. Also, central line in place. No pneumothorax. He does have changes of pulmonary vascular congestion. His chemistry profile, his last BUN was 19, creatinine of 0.9, bicarbonate was 27, potassium was 4.0, albumin 3.1, magnesium 1.7. ProBNP just over 2200. Troponins elevated. White blood cell count this morning 15,000, hemoglobin 13.3, hematocrit of 40.3, platelets 195,000. Last arterial blood gas, he had pH of 7.24, pCO2 of 55, pO2 102, bicarbonate 23 with a saturation of 96%; that was on assist control of 14, tidal volume of 500, PEEP of 5, FiO2 was 100%. Blood cultures were sent. IMPRESSION: 1. Acute respiratory failure following a cardiopulmonary arrest. 2. Status post cardiopulmonary arrest, now status post stent placement. Reportedly, has a decrease in LV function, details not clear. 3. History of asthma. 4. Pulmonary vascular congestion. Some of the infiltrates noted [place] [address] CONSULTATION Name: ELICIA SANDRA Room: [address] IN [facility]#: [id number] Admission: 11/23/18 Attend Phys: Peter Sharma MD, F Discharge: Date of : 41 Report #: [id number] 5. Ventricular tachycardia. 6. History of congenital heart disease. Status post pulmonic valvuloplasty and subsequently pulmonary valve replacement. 7. Recent diagnosis of prostate cancer. Has been receiving radiation therapy. 8. History of asthma. Not overly bronchospastic on exam, however, airway pressures are running high. With limited information available, it appears he is on bronchodilator regimen at home. 9. Hemoptysis, most likely related to anticoagulation use with his recent stent placement. 10. History of atrial fibrillation. RECOMMENDATIONS: 1. Make some additional vent changes. Increase rate to try and compensate for his hypercapnia. Also, decrease tidal volume given the higher airway pressures. 2. We will also start bronchodilators, Xopenex and ipratropium bromide. Next 24 hours of steroids. 3. Continue followup. Depending on his cardiac and neurological status, easily he may be weaned from the ventilator. 4. Did discuss with Dr. Sharma. Also discussed with nursing staff and RT. <ELECTRONICALLY SIGNED> By: Molly Umanzor MD 11/26/18 0813 0928 1846Molly Umanzor MD /nt
[2018-11-26 08:46] LABS: BE 2.3 mmol/L (-2 to +3); PCO2 34.1 mmHg (35.0-45.0); PO2 80.8 mmHg (75.0-100.0); pH 7.489 (7.340-7.450)
--- NOTE | 2018-11-26 09:25 | NUR ---
ASSUMED CARE OF PATIENT, VITALS WNL AT THIS TIME, ATTEMPTING TO WEAN SEDATION TO DETERMINE UNDERLYING NEUROLOGICAL RESPONSE. FAMILY PRESENT AT THIS TIME. UPDATED ON PLAN OF CARE. ALL QUESTIONS ANSWERED. GOALS ARE TO WEAN LEVOPHED, DETERMINE NEUROLOGICAL RESPONSE OFF SEDATION AND KEEP SAFE AND COMFORTABLE. BED IN LOWEST POSITION, CARIDAC MONITOR IN PLACE.
--- NOTE | 2018-11-26 10:30 | NUR ---
SPOKE WITH FAMILY AT THE BEDSIDE, THEY ARE WAITING TO TALK WITH THE NEUROLOGIST. NURSING NOTIFIED AND CALLED OFFICE TO FIND OUT WHEN DR. ADAM WILL BE ROUNDING, TO LET FAMILY KNOW. CASE MGT WILL CONTINUE TO FOLLOW.
[2018-11-26 11:39] LABS: BE 4.2 mmol/L (-2 to +3); PCO2 38.1 mmHg (35.0-45.0); pH 7.481 (7.340-7.450)
--- NOTE | 2018-11-26 14:47 | EKG ---
[place] [address] ELECTROCARDIOGRAM REPORT Name: ELICIA SANDRA Room: [address] ADM IN M.R.#: [id number] Admission: 11/23/18 Attend Phys: Peter Sharma MD, F Discharge: Date of : 41 Report #: [id number] THIS REPORT FOR: //name// [facility] Test Date: 2018-11-25 Test Time: 23:55:29 Pat Name: ELICIA SANDRA Department: Room: [address] Gender: M Yard Person: UNK : 1945 Requested By: Arpit Weinberg Order Number: [id number] Eamon MD: Gordy Mock Measurements Intervals [place] Rate: 143 P: NE: QRS: -128 QRSD: 139 T: 46 QT: 355 QTc: 548 Interpretive Statements Wide complex tachycardia Right bundle branch block Inferior infarct, old, possible Anterolateral infarct, age indeterminate Baseline wander in lead(s) V2 Compared to ECG 11/25/2018 09:02:04 Sinus rhythm no longer present Myocardial infarct finding still present Electronically Signed On 11-26-2018 14:47:23 CDT by Gordy Mock [email or web address] <ELECTRONICALLY SIGNED> By: Gordy Mock MD, FACC 11/26/18 1447 [id number] [id number] Gordy Mock MD, FAC /EPI
--- NOTE | 2018-11-26 18:15 | NUR ---
PATIENT FAMILY UPDATED BY DR AADM, DR PADRON AND DR SUERO TODAY ON PROGNOSIS. FAMILY ABLE TO ASK QUESTIONS AND RECEIVED ANSWERS FROM ALL DOCTORS. EEG TO BE DONE TOMORROW AND DR ADAM WILL ASK DR UMANA TO CALL FAMILY CHER ONCE EEG RESULTS ARE ABLE TO BE READ. SEDATION WEANED DOWN THIS SHIFT AND PATIENT HAS NO PAIN STIMULI. POSTIVE GAG AND PUPIL RESPONSE BUT OTHERWISE DOES NOT FOLLOW COMMANDS, OPEN EYES. WILL CONTINUE WITH PUSH SEDATION IF NEEDED INSTEAD OF CONTINUOUS GTTS PER DR SUERO. REMAINS JUNCTIONAL TACHYCARDIA AT THIS TIME. SUGARS REMAIN UNDER 120. BED IN LOWEST POSITION, CALL LIGHT IN REACH, INFORMATION SYSTEMS SECURITY OFFICER IN PLACE.
--- NOTE | 2018-11-26 18:54 | NUR ---
CHECKED PATIENTS BLOOD SUGAR, READ 52 FROM FINGER STICK. FINGERS COLD BUT GOOD CAP REFILL. RECHECKED THROUGH CENTRAL LINE AFTER FLUSHING AND PULLING BACK 5 CC OF WASTE. SUGAR IS 72, WILL CONTINUE TO MONITOR.
[2018-11-27] VITALS (63 sets, daily range): BP systolic 73–298; BP diastolic 55–284
[2018-11-27 05:59] LABS: ABSOLUTE LYMPHOCYTES 0.9 thou/uL (0.8-5.3); ABSOLUTE MONOCYTES 1.1 thou/uL (0.0-1.2); ABSOLUTE NEUTROPHILS 5.4 thou/uL (1.6-8.1); HEMATOCRIT 29.1 % (42.0-52.0); LYMPHOCYTES 12.1 %; MCH 30.8 pg (26.0-34.0); MCHC 34.3 g/dL (28.0-37.0); MCV 89.9 fL (80.0-100.0); MONOCYTES 15.3 %; MPV 9.3 fl. (7.2-11.1); NUCLEATED RBCS 0 /100WBC; PLATELET COUNT* 120 thou/uL (150-400); POLYS 72.6 %; RBC 3.24 mil/uL (4.50-6.00); RDW-CV 14.5 % (10.5-14.5); WBC 7.5 thou/uL (4.0-11.0)
[2018-11-27 06:10] LABS: ALBUMIN 2.3 g/dL (3.4-5.0); POTASSIUM 3.6 mmol/L (3.5-5.1); TOTAL PROTEIN 5.4 g/dL (6.4-8.2)
--- NOTE | 2018-11-27 06:17 | NUR ---
AM ABG FOR 11/27/2018 WAS NOT DONE. ART LINE IS NOT WORKING CORRECTLY AND PT'S HEART RATE IS 140-148 BPM AND GOES UP WHEN HE IS MOVED AROUND.
--- NOTE | 2018-11-27 06:33 | NUR ---
PT MINIMAL PROGRESSION TOWARDS GOALS, REMAINS ACCELERATED JUNCTIONAL RYTHEM WITH BBB, HR INCREASING 120'S TO 140'S, FENTANYL 50MCG IVP GIVEN X2 TO ASSIST WITH HR NORMALIZATION, FENTANYL X2 WITH MINIMAL EFFECT. SPOKE WITH DR DAVALOS SERVICE LINE BUS CLEANER FOR DR BELL THIS AM, UPDATED PT CONTINUES ON AMIODARONE GTT, ACCELERATED JUNCTION RHTHEM WITH BBB WITH RAPID HEART RATE, NEW ORDERS RECEIVED FOR LOPRESSOR 5MG IVP BID, FIRST DOSE NOW. WILL INITIATE ORDERS AND CONTINUE TO MONITOR.
[2018-11-27 07:24] LABS: BE 5.2 mmol/L (-2 to +3); PCO2 38.3 mmHg (35.0-45.0); PO2 95.6 mmHg (75.0-100.0); pH 7.493 (7.340-7.450)
--- NOTE | 2018-11-27 08:00 | NUR ---
ASSUMED CARE OF PATIENT THIS SHIFT, PLAN TO DO EEG SOME TIME THIS MORNING/AFTERNOON AND DR UMANA WILL CALL RESULTS TO FAMILY. PATIETN HEART RATE 137 AT THIS TIME, METOPROLOL GIVEN, PRESSURES REMAIN STABLE OFF LEVOPHED. BED IN LOWEST POSITION, CALL LIGHT IN REACH, CARDIAC MONTIOR IN PLACE.
--- NOTE | 2018-11-27 10:30 | NUR ---
SPOKE WITH AND FAMILY. THEY HAVE MADE THE DECISION TO MAKE PATIENT DNR, NURSING AWARE. PT TO HAVE EEG TODAY, SAID 'WE MAY HAVE TO MAKE SOME MORE DECISIONS DEPENDING ON WHAT THAT SHOWS. THIS IS IN GOD'S HANDS NOW.' UNDERSTANDS WHAT DNR STATUS MEANS, NOT STOPPING ANY OF CURRENT TREATMENTS BUT NO RESUSCITATION IF HIS HEART WERE TO STOP. ASKED A FEW QUESTIONS ABOUT COMFORT CARE, BUT AGAIN SAID, 'WE NEED TO SEE HOW HE DOES WITH THE EEG AND HOW TODAY GOES.' PROVIDED SUPPORT. MULTIPLE FAMILY AND FRIENDS HERE WITH .
--- NOTE | 2018-11-27 10:50 | EKG ---
[place] [address] ELECTROCARDIOGRAM REPORT Name: SANDRAELICIA Room: [address] ADM IN M.R.#: [id number] Admission: 11/23/18 Attend Phys: Peter Sharma MD, F Discharge: Date of : 41 Report #: [id number] THIS REPORT FOR: //name// [facility] Test Date: 2018-11-27 Test Time: 05:10:11 Pat Name: ELICIA SANDRA Department: Room: [address] Gender: M Workforce Staffing Advisor: LA CARPENTER : 1945 Requested By: Peter Sharma Order Number: [id number] Eamon MD: Jameson Guardado Measurements Intervals [place] Rate: 138 P: TN: QRS: -153 QRSD: 152 T: 39 QT: 373 QTc: 566 Interpretive Statements Sinus orJunctional tachycardia Right bundle branch block Inferior infarct, acute Anterolateral infarct, recent Compared to ECG 11/25/2018 23:55:29 Junctional tachycardia now present Myocardial infarct finding still present Electronically Signed On 11-27-2018 10:50:09 CDT by Jameson Guardado [email or web address] <ELECTRONICALLY SIGNED> By: Jameson Guardado MD, [facility] 11/27/18 1050 0510 0510 Jameson Guardado MD, [facility] /EPI
--- NOTE | 2018-11-27 18:25 | NUR ---
PATIENT NOT PROGRESSING WELL TOWARDS GOALS. IS NOT OPENING EYES AFTER DR UMANA ASSESSED PATIENT. CONTINUES ON AMIOADARONE GTT FOR HEART RATE IN 140S. FAMILYS PLAN IS TO WAIT AND SEE HOW PATIENT RESPONDS OFF SEDATION OVER THE WEEKEND AND REEVALUATE FRIDAY OR FRIDAY. TEMP REMAINS HIGH WITH SCHEUDLED TYLENOL. BED IN LOWEST POSITION, CALL LIGHT IN REACH, CARDIAC MONTIOR IN PLACE.
--- NOTE | 2018-11-27 19:13 | NUR ---
MTN FOLLOWING DUE TO LOW GCS SCALE. REFERAL NUMBER [id number]
--- NOTE | 2018-11-27 19:43 | NUR ---
ACCELERATED JUNCTIONAL RHYTHEM WITH BBB HR 150'S, LOPRESSOR 5MG IVP SCHEDULED 21OO GIVEN EARLY, LOPRESSOR HELPFUL DECREASING HR TO 120'S, SPOKE WITH DR SHEIKH, NEW ORDERS RECEIVED LOPRESSOR 5MG IVP A2LQAPL PRN.
[2018-11-28] VITALS (91 sets, daily range): BP systolic 70–182; BP diastolic 40–176
[2018-11-28 03:59] LABS: ALBUMIN 2.4 g/dL (3.4-5.0); CALCIUM 8.2 mg/dL (8.5-10.1); POTASSIUM 3.4 mmol/L (3.5-5.1); TOTAL BILIRUBIN 2.9 mg/dL (<0.1-1.0); TOTAL PROTEIN 5.7 g/dL (6.4-8.2)
[2018-11-28 05:37] LABS: BE 2.5 mmol/L (-2 to +3); PCO2 37.3 mmHg (35.0-45.0); PO2 103.8 mmHg (75.0-100.0); pH 7.464 (7.340-7.450)
--- NOTE | 2018-11-28 08:55 | NUR ---
POOR PROGRESSION TOWARDS GOALS, SEE COMPUTERIZED ASSESSMENT DOCUMENTATION FOR FURTHER DETAILS, COPIOUS AMOUNTS BLOODY TINGED SPUTUM WITH BLOOD CLOTS SUCTIONED VIA ETT INLINE SUCTION CATHETER DURING NOC. SPUTUM INCREASED THIS AM CHANGING TO THIN BRIGHT RED AND FROTHY. DR SUERO HERE TO SEE PT, UPDATED ON CURRENT CONDITION INCLUDING BLOODY FROTHY SPUTUM WITH BLOOD CLOTS DURING SHIFT. REMAINS FEBRILE, SCHEDULED TYLENOL ELIXER HELPFUL FOR FEVER REDUCTION. FAN IN USE TO ASSIST WITH TEMP REGULATION, JUNTIONAL TACHYCARDIA WITH BBB TRACING MANAGER GYN HR 120'S TO HIGH 140'S UNTIL APROX 0300 THIS AM, CONVERTED NSR WITH HR 80'S TO 90'S. METOPROLOL 5MG IVP GIVEN X1 PRN, SAFETY MAINTAINED.
--- NOTE | 2018-11-28 10:27 | NUR ---
PT MOVING JAW AND MOUTH. GAG REFLEX INTACT. DISCUSSED TACHYCARDIA WITH CARDIOLOGY. SCHEDULED METOPROLOL CHANGED TO Q6. HOSPITALIST CONSULTED PER ATTENDING TEMP OF 100.9. TYLENOL GIVEN ON NIGHTS. FAN, COOL COMPRESS TO HEAD AND ICE PACKS BILATERALLY TO AXILLA. TEMP 100.0. WILL CONTINUE TO MONITOR. SPOUSE DAVIS AT BEDSIDE AND UPDATED BY THIS RN AND CARDIOLOGY.
--- NOTE | 2018-11-28 12:26 | NUR ---
RECEIVED ORDERS TO DISCONTINUE ARTERIAL LINE IN RIGHT GROIN, FEMORAL ARTERY AND VENOUS SHEATH IN RIGHT GROIN. PRIOR TO DISCONTINUING OF A-LINE SMALL HEMATOMA NOTICED ON RIGHT GROIN. PURPLE AND YELLOW BRUISING. ARTERAL LINE DISCONTINUED AT 1045. PRESSURE HELD FOR 15 MINUTES. WHILE HODLING PRESSURE HEMATOMA GREW 2-4 CM OUT IN DIAMETER. AFTER RELEASE OF PRESSURE AND POST 15 MINUTES OF REMOVAL OF ARTERIAL LINE, HEMATOMA SMALLER AND SOFTER. WILL CONTINUE TO MONITOR.
--- NOTE | 2018-11-28 17:21 | NUR ---
BP 70'S/40'S. LEVOPHED STARTED. TMAX TEMP 100.9. TEMP ON AVERAGE 100.0 THIS SHIFT. FAN ON. COOL COMPRESSES APPLIED. TEMP CURRENTLY 99.7. THIS IS LOWEST TEMP ALL SHIFT. CATHFLOW USED ON RIGHT JUGULAR CENTRAL LINE ON BLUE AND WHITE PORTS. VENOUS SHEATH PULLED AT 1505. PRESSURE HELD. RIGHT GROIN ASSESSED. NO BLEEDING FROM ARTERIAL LINE OR VENOUS SHEETH. LOCATION OF PREVOUS HEMATOMA HAS DECREASED. PRN FENTANYL AND ATIVAN GIVEN FOR AGITATION. THIS SHIFT PT HAS BEEN OBSERVED SHAKING HEAD REPEATEDLY LEFT TO RIGHT. PT MOVING JAW. OPENING EYES. PT SHOWING SIGNS OF DECORTICATE POSTURING, ALSO SEEN BY INTERNAL MEDICINE. THESE SYMPTOMS WERE DISCUSSED TO FAMILY BY HIMS AND NEUROLOGY. FAMILY AT BEDSIDE THIS SHIFT.
--- NOTE | 2018-11-28 18:04 | NUR ---
DUE TO BODY MOVEMENTS, CONCERN FOR POSSIBLY UNDERLYING SEIZURE AND PER HIMS ASK NEURO IF KEPPRA WOULD BE APPROPRIATE FOR PT. SPOKE TO NEURO, RELAYED INFO, NO ORDERS RECEIVED FOR KEPPRA. CONTINUE WITH IV PUSH OF ATIVAN THAT IS WHAT IS WORKING FOR PATIENT. IF ATIVAN IS BEING ADMINISTERED FREQUENTLY, PER NEURO GIVE VERSED GTT.
--- NOTE | 2018-11-28 20:09 | NUR ---
SERUM POTASSIUM LEVEL 3.1, POTASSIUM CHLORIDE 40MEQ IVPB OVER 4 HOURS X2 DOSES CONSECUTIVELY INITATED PER ORDERED ELECTROLYTE REPLACEMENT PROTOCOL.
[2018-11-29] VITALS (68 sets, daily range): BP systolic 68–140; BP diastolic 45–94
[2018-11-29 06:13] LABS: HEMATOCRIT 32.1 % (42.0-52.0); HEMOGLOBIN 10.7 gm/dL (14.0-18.0); MCH 30.6 pg (26.0-34.0); MCHC 33.5 g/dL (28.0-37.0); MCV 91.5 fL (80.0-100.0); MPV 9.3 fl. (7.2-11.1); NUCLEATED RBCS 0 /100WBC; PLATELET COUNT* 191 thou/uL (150-400); RBC 3.51 mil/uL (4.50-6.00); RDW-CV 14.6 % (10.5-14.5)
--- NOTE | 2018-11-29 06:15 | NUR ---
MOUTH/JAW MOVEMENT, HEAD NODDING RIGHT TO LEFT AND ANTERIOR POSTERIOR INTERMITTENTLY THROUGHOUT NOC, SOME RYTHMIC MOVEMENT BILAT UPPER ARMS ELBOWS MOVING POSTERIOR TOWARDS SHOULDERS AND BACK TO RESTING POSITON, NO SEDATION GIVEN THIS SHIFT, NO EYE OPENING NOTED AFTER 2100, POTASSIUM REPLACED PER ELECTROLYTE PROTOCOL, AWAITING POST POTASSIUM REPLACEMENT SERUM POTASSIUM RESULTS FROM LAB, HR 80'S TO HIGH 14O'S, SCHEDULED METOPROL GIVEN ORDERED, X1 DOSE METOPROLOL 5MG IVP PRN ALSO ADMINISTERED FOR RAPID HEART RATE, LEVOPHED TITRATED DOWN ABLE, SEE MEDICATION TITRATON DOCUMENTATION FOR FURTHER DETAILS, REMAINS FEBRILE, SCHEDULED TYLENOL SOMEWHAT HELPFUL FOR TEMPERTURE CONTROL, FAN ALSO IN USE TO ASSIST WITH TEMP NORMALIZATION, DECREASED SECRETIONS COMPARED TO PREVIOS NOC WITH TANISH BLOOD TINGED SPUTUM VIA ETT. SAO2 =>99%, NO CHANGE IN VENTILATOR SETTINGS BY RT THIS NOC.
[2018-11-29 07:00] LABS: ALBUMIN 2.2 g/dL (3.4-5.0); CALCIUM 8.2 mg/dL (8.5-10.1); POTASSIUM 4.1 mmol/L (3.5-5.1); TOTAL BILIRUBIN 2.7 mg/dL (<0.1-1.0); TOTAL PROTEIN 5.7 g/dL (6.4-8.2)
[2018-11-29 08:15] LABS: ABSOLUTE LYMPHOCYTES 0.9 thou/uL (0.8-5.3); ABSOLUTE MONOCYTES 1.3 thou/uL (0.0-1.2); ABSOLUTE NEUTROPHILS 8.8 thou/uL (1.6-8.1); ANISOCYTOSIS Occasional; METAMYELOCYTES 1 %; PLATELET ESTIMATE ADEQUATE
--- NOTE | 2018-11-29 08:55 | NUR ---
PRN METROPROLOL GIVEN FOR SUSTAINED HEART RATE IN 130'S. LEVOPHED INCREASED FOR BP OF 81/52. PT OPENING EYES. PT MOVING JAW. NODDING HEAD LEFT TO RIGHT. RHYTHMIC MOVMENT OF SHOULDERS UP AND DOWN. PT CURRENTLY PREPARING FOR EEG. EKG OBATINED PER CARDIOLOGY TO ASSESS FOR AMIODARONE TOXICITY. TEMP 101.1. FAN ON. ICE PACKS APPLIED BILATERALLY TO AXILLA. TEMP 100.4. WILL CONTINUE PLAN OF CARE. NO SUPPORT PERSON AT BEDSIDE THIS AM.
--- NOTE | 2018-11-29 10:26 | NUR ---
PT IN ACCELERATED JUNCTIONAL RHYTHM HEART RATE IN 140'S. CARDIOLOGY NOTIFED. 12 LEAD EKG OBTAINED. NO PRN OR SCHEDULED METOPROLOL AVAILABLE. AWAITING ORDERS.
--- NOTE | 2018-11-29 12:43 | EEG ---
[facility] [address] [place] [address] EEG STUDY REPORT Name: JOCYELICIA Thania Room: [address] IN M.R.#: [id number] Admission: 11/23/18 Attend Phys: Peter Sharma MD, F Discharge: Date of : 41 Report #: [id number] THIS REPORT FOR: //name// CC: Robi Sharma INDICATIONS: The patient is a 73-year-old male status post cardiac arrest. An EEG is being requested for further evaluation. DESCRIPTION OF PROCEDURE: Using the 10-20 electrode system, an electroencephalogram was done at the bedside. The background rhythm consists of low amplitude 20 microvolts, 5-6 Hz activity. No posterior dominant rhythm is seen. No change of state is noted during the recording. Photic stimulation is nonactivating. No epileptiform activity is noted. IMPRESSION: This is an abnormal adult record because of low amplitude generalized slowing. No posterior dominant rhythm is noted and no change of state is noted during the recording. This record is consistent with at least moderately diffuse cerebral dysfunction. No epileptiform activity is noted. <ELECTRONICALLY SIGNED> By: Carmen Matta DO 11/29/18 1243 1204 1422Rlonny Matta, DO /nt
--- NOTE | 2018-11-29 15:38 | NUR ---
FAMILY DECIDED TO EXTUBATE AND PUT ON COMFORT CARE. DR SHEIKH NOTIFIED AND CAME TO SPEAK TO FAMILY.
--- NOTE | 2018-11-29 17:40 | NUR ---
PT REPORTED READY FOR COMFORT CARE AND EXTUBATION. PT EXTUBATED AT 1723.
[2018-11-30 07:20] VITALS: BP 76/46
--- NOTE | 2018-11-30 07:35 | NUR ---
Pt on comfort care. Received morphine and lorazepam prn; see MAR. Multiple family members present for most of shift; left @ 0630 and said they will return after 0800. RR upper-30s to low-40s; HR 120s-130s.
--- NOTE | 2018-11-30 10:25 | NUR ---
PATIENT PASSED AT 0923, FAMILY AT BEDSIDE DURING PASSING. MTN CALLED, PATIENT IS CANDIATE FOR ORGAN AND TISSUE, MTN WILL CALL FAMILY. HOME NOT CALLED YET UNTIL MTN CALLS BACK.
--- NOTE | 2018-11-30 12:42 | EKG ---
[place] [address] ELECTROCARDIOGRAM REPORT Name: ELICIA SANDRA Room: [address] ADM IN .R.#: [id number] Admission: 11/23/18 Attend Phys: Peter Sharma MD, F Discharge: Date of : 41 Report #: [id number] THIS REPORT FOR: //name// [facility] Test Date: 2018-11-29 Test Time: 08:38:47 Pat Name: ELICIA SANDRA Department: Room: [facility] Gender: M Area Sales Manager: ANDREW : 1945 Requested By: Marily Montalvo Order Number: [id number] Eamon MD: Jameson Guardado Measurements Intervals [place] Rate: 78 P: 12 IN: 145 QRS: -142 QRSD: 147 T: 56 QT: 443 QTc: 505 Interpretive Statements Sinus rhythm Right bundle branch block Inferolateral st elevation Probable anterior infarct, age uncertain Compared to ECG 11/27/2018 05:10:11 No significant changes Electronically Signed On 11-30-2018 12:42:23 CDT by Jameson Guardado [email or web address] <ELECTRONICALLY SIGNED> By: Jameson Guardado MD, [facility] 11/30/18 1242 0838 0838 Jameson Guardado MD, [facility] /EPI
--- NOTE | 2018-11-30 12:43 | EKG ---
[place] [address] ELECTROCARDIOGRAM REPORT Name: ELICIA SANDRA Room: [address] ADM IN .R.#: [id number] Admission: 11/23/18 Attend Phys: Peter Sharma MD, F Discharge: Date of : 41 Report #: [id number] THIS REPORT FOR: //name// [facility] Test Date: 2018-11-29 Test Time: 10:23:00 Pat Name: ELICIA SANDRA Department: Room: [facility] Gender: M Tobacco Conditioner: : 1945 Requested By: Peter Sharma Order Number: [id number] Eamon MD: Jameson Guardado Measurements Intervals [place] Rate: 143 P: NE: QRS: -131 QRSD: 142 T: 50 QT: 361 QTc: 557 Interpretive Statements Junctional tachycardia Right bundle branch block Inferolateral infarct, acute Compared to ECG 11/27/2018 05:10:11 Junctional tachycardia now present Myocardial infarct finding still present Electronically Signed On 11-30-2018 12:43:36 CDT by Jameson Guardado [email or web address] <ELECTRONICALLY SIGNED> By: Jameson Guardado MD, [facility] 11/30/18 1243 1023 [facility] Jameson Guardado MD, [facility] /EPI
--- NOTE | 2018-11-30 16:00 | NUR ---
[facility] [place] CALLED FOR RESEARCH SUBJECT OF BODY AT 1533PM. BODY RELEASED TO [employer]YWALL CONTRACTOR OF [facility], HILARIO QUINN, AT 1600 FROM PACU.
--- NOTE | 2018-11-30 16:31 | CON ---
[facility] [address] [place] [address] CONSULTATION Name: ELICIA SANDRA Room: [address] IN .[place].#: [id number] Admission: 11/23/18 Attend Phys: Peter Sharma MD, F Discharge: Date of : 41 Report #: [id number] THIS REPORT FOR: //name// CC: Robi Sharma DATE OF SERVICE: 11/24/2018 HISTORY OF PRESENT ILLNESS: This is a 73-year-old male patient who was discussed with Dr. Sharma, from Cardiology. Neurological consultation is being requested because the patient had a cardiopulmonary arrest. We are asked to prognosticate this patient. Presently, the patient is on a cooling protocol. He did have some arrhythmias last night. As I understand, the cardiac arrest occurred in the Emergency Room. He was cardioverted from ventricular fibrillation. REVIEW OF SYSTEMS: Indicates that the patient had this cardiac arrest. He is on sedation, but the nurses tell me that he is not responding. He did have some chest pain. He has a history of enlarged prostate, apparently has a prior history of polio. He had a heart surgery done with pulmonary valve replacement. That was his relevant 14-point review of system. PAST MEDICAL HISTORY: Positive for prostate problem. FAMILY HISTORY: Negative for any early age stroke. SOCIAL HISTORY: Unremarkable. The patient has a supportive family and I talked to them. PHYSICAL EXAMINATION: Indicates he is comatose. He did not respond. His pupil is small and nonreactive. That is all the examination which is possible on him. He is intubated. He is stable from a cardiac perspective. His blood pressure is 103/53, respiration is 24, pulse is 57. He is on cooling protocol with a temperature of 94. LABORATORY DATA: His white count is 15 and his GFR is 59. He did have a CT scan of the head in the Emergency Room and that was mostly unremarkable. IMPRESSION: Cardiac arrest. We will do the workup to determine the extent of this patient's hypoxic encephalopathy and prognosticate him in the next few days. I discussed that aspect with the patient's family. I discussed the process and told them that it might take several days to do that. They do understand that and we will do an EEG tomorrow after the [place] [address] CONSULTATION Name: ELICIA SANDRA Room: [address] IN [facility].#: [id number] Admission: 11/23/18 Attend Phys: Peter Sharma MD, F Discharge: Date of : 41 Report #: [id number] Thank you very much for this referral. <ELECTRONICALLY SIGNED> By: Sylvester Whitt MD 11/30/18 1631 [id number] [id number] Whitt MD /nt
--- NOTE | 2018-11-30 16:31 | EEG ---
[address] [address] EEG STUDY REPORT Name: SANDRAELICIA Thania Room: [address] IN .[place].#: [id number] Admission: 11/23/18 Attend Phys: Peter Sharma MD, F Discharge: Date of : 41 Report #: [id number] THIS REPORT FOR: //name// CC: Robi Sharma DATE OF SERVICE: 11/25/2018 The patient had a cardiac arrest. EEG was done by placing the electrode by standard 10-20 system of electrode placement. Both referential and sequential montages were used for recording. Background activity in this patient's EEG is up to 5-6 Hz and 30 microvolt. It fluctuates. Photic stimulation is unremarkable. No active epileptiform activity was noticed. IMPRESSION: Moderately abnormal EEG because it is disorganized and poorly formed. That finding will be consistent with encephalopathy. The patient will need repeated EEG to prognosticate him further. Thank you very much for this referral. <ELECTRONICALLY SIGNED> By: Sylvester Whitt MD 11/30/18 1631 1628 [id number] Whitt MD /nt
--- NOTE | 2018-12-02 10:16 | D ---
[facility] [address] [place] [address] DISCHARGE SUMMARY Name: ELICIA SANDRA Room: [address] IN .[place].#: [id number] Admission: 11/23/18 Attend Phys: Peter Sharma MD, F Discharge: 11/30/18 Date of : 41 Report #: [id number] THIS REPORT FOR: //name// CC: Robi Sharma DATE OF SERVICE: 11/30/2018 DISCHARGE SUMMARY The patient at 09:23 on 11/30/2018. FINAL DISCHARGE DIAGNOSES: 1. ST segment elevation myocardial infarction. 2. Ischemic cardiomyopathy. 3. Hypoxic encephalopathy. 4. Status post percutaneous coronary intervention. PROCEDURES: Cardiac catheterization with coronary stenting. HOSPITAL COURSE: The patient is a 73-year-old male who presented with ST segment elevation myocardial infarction and out of hospital arrest. He was resuscitated and underwent emergent catheterization with multivessel stenting performed. The patient demonstrated severe hypoxic encephalopathy, which progressed and there was no pentecostalism of normal state of consciousness during his hospitalization. He had a significant ischemic cardiomyopathy after the out of hospital arrest and myocardial infarction with an ejection fraction in the range of 20%-25%. He was followed by Neurology during the hospitalization as well as ourselves and demonstrated no neurological recovery after the out of hospital arrest. He continued to demonstrate a sinus or junctional tachycardia with an interventricular conduction delay. He ultimately arrested and was not able to be resuscitated on 11/30/2018 and at 09:23. The course of events and explanation of same was detailed with the patient and family by Neurology and by myself. The patient ultimately at 09:23 on 11/30/2018. <ELECTRONICALLY SIGNED> By: Jameson Guardado MD, FACC 12/02/18 [id number] Guardado MD, FACC /nt
== END 2018-11-30 09:23 | DRG 853 ==
LOC: M.CL 16:53 → M.ERS 16:53 → M.TBA-ER 17:30 → M.ICU 17:30 → M.REH 11-30 11:30 → M.TBA 11-30 13:51 → M.REH 11-30 17:23 → M.TBA-ER 11-30 17:23
PROVIDERS: Emergency Medicine; Internal Medicine Critical Care Medicine; Internal Medicine Pulmonary Disease; ADMIT Internal Medicine Cardiovascular Disease
PROC: 4A023N7 Measurement of Cardiac Sampling and Pressure, Left Heart, Percutaneous Approach (ICD-10-PCS; principal; 2018-11-23)
PROC: B2151ZZ Fluoroscopy of Left Heart using Low Osmolar Contrast (ICD-10-PCS; 2018-11-23)
PROC: B2111ZZ Fluoroscopy of Multiple Coronary Arteries using Low Osmolar Contrast (ICD-10-PCS; 2018-11-23)
PROC: 5A2204Z Restoration of Cardiac Rhythm, Single (ICD-10-PCS; 2018-11-23)
PROC: 5A12012 Performance of Cardiac Output, Single, Manual (ICD-10-PCS; 2018-11-23)
PROC: 02H633Z Insertion of Infusion Device into Right Atrium, Percutaneous Approach (ICD-10-PCS; 2018-11-23)
PROC: 02713EZ Dilation of Coronary Artery, Two Arteries with Two Intraluminal Devices, Percutaneous Approach (ICD-10-PCS; 2018-11-23)
PROC: B2101ZZ Fluoroscopy of Single Coronary Artery using Low Osmolar Contrast (ICD-10-PCS; 2018-11-23)
PROC: 5A1955Z Respiratory Ventilation, Greater than 96 Consecutive Hours (ICD-10-PCS; 2018-11-24)
PROC: 0BH17EZ Insertion of Endotracheal Airway into Trachea, Via Natural or Artificial Opening (ICD-10-PCS; 2018-11-24)
PROC: 0W3P8ZZ Control Bleeding in Gastrointestinal Tract, Via Natural or Artificial Opening Endoscopic (ICD-10-PCS; 2018-11-25)
DX: A41.9 Sepsis, unspecified organism (principal); I21.09 ST elevation (STEMI) myocardial infarction involving other coronary artery of anterior wall; J96.01 Acute respiratory failure with hypoxia; K25.4 Chronic or unspecified gastric ulcer with hemorrhage; I50.21 Acute systolic (congestive) heart failure; G93.1 Anoxic brain damage, not elsewhere classified; R04.2 Hemoptysis; E87.2 Acidosis; I46.9 Cardiac arrest, cause unspecified; I48.91 Unspecified atrial fibrillation; I49.01 Ventricular fibrillation; J45.909 Unspecified asthma, uncomplicated; N40.0 Benign prostatic hyperplasia without lower urinary tract symptoms; H40.9 Unspecified glaucoma; A80.9 Acute poliomyelitis, unspecified; I25.82 Chronic total occlusion of coronary artery; E78.5 Hyperlipidemia, unspecified; E11.9 Type 2 diabetes mellitus without complications; R04.0 Epistaxis; I95.9 Hypotension, unspecified; Z51.5 Encounter for palliative care; I25.10 Atherosclerotic heart disease of native coronary artery without angina pectoris; I25.5 Ischemic cardiomyopathy; I11.0 Hypertensive heart disease with heart failure; Z85.46 Personal history of malignant neoplasm of prostate; Z92.3 Personal history of irradiation; Z90.49 Acquired absence of other specified parts of digestive tract; Z79.01 Long term (current) use of anticoagulants; Z79.899 Other long term (current) drug therapy; Z90.89 Acquired absence of other organs; Z88.1 Allergy status to other antibiotic agents; Z88.2 Allergy status to sulfonamides